=== PATIENT | male | born 1980 | race African-American/Black ===

== ENCOUNTER 2017-08-08 17:23 | Emergency (ER) | payer MEDICARE, OTHER ==
[2017-08-08 17:49] LABS: ABSOLUTE EOSINOPHILS # (AUTO) 0.1 10^3/uL (0.0-0.6); ABSOLUTE LYMPHOCYTES (AUTO) 0.5 10^3/uL (0.5-4.7); ABSOLUTE MONOCYTES (AUTO) 0.8 10^3/uL (0.1-1.4); ABSOLUTE NEUT (AUTO) 8.4 10^3/uL (1.7-8.2); EOSINOPHILS % (AUTO) 0.6 % (0-6); HEMATOCRIT 54.1 % (37.9-51.0); LYMPHOCYTES % (AUTO) 5.3 % (13-45); MEAN CORPUSCULAR HEMOGLOBIN 28.8 pg (27.0-33.4); MEAN CORPUSCULAR HGB CONC 33.2 g/dL (32.0-36.0); MEAN CORPUSCULAR VOLUME 87 fl (80-97); MONOCYTES % (AUTO) 7.9 % (3-13); PLATELET COUNT 216 10^3/uL (150-450); RED BLOOD COUNT 6.24 10^6/uL (4.35-5.55); RED CELL DISTRIBUTION WIDTH 12.8 % (11.5-14.0); SEGMENTED NEUTROPHILS % (AUTO) 86.2 % (42-78); TOTAL CELLS COUNTED % (AUTO) 100 %; WHITE BLOOD COUNT 9.8 10^3/uL (4.0-10.5)
[2017-08-08 18:09] LABS: ALANINE AMINOTRANSFERASE 91 U/L (21-72); ALBUMIN 5.3 g/dL (3.5-5.0); ALKALINE PHOSPHATASE 60 U/L (38-126); ANION GAP 17 (5-19); ASPARTATE AMINO TRANSFERASE 52 U/L (17-59); BILIRUBIN,DIRECT 0.4 mg/dL (0.0-0.4); BILIRUBIN,TOTAL 0.9 mg/dL (0.2-1.3); BLOOD UREA NITROGEN 19 mg/dL (7-20); CALCIUM 10.6 mg/dL (8.4-10.2); CARBON DIOXIDE 26 mmol/L (22-30); CHLORIDE 100 mmol/L (98-107); CREATINE KINASE 917 U/L (55-170); GLUCOSE 159 mg/dL (75-110); POTASSIUM 5.8 mmol/L (3.6-5.0); SODIUM 142.9 mmol/L (137-145); TOTAL PROTEIN 9.3 g/dL (6.3-8.2)
[2017-08-08 18:21] LABS: CREATINE KINASE MB 4.52 ng/mL (<4.55)
[2017-08-08 18:23] LABS: TROPONIN I < 0.012 ng/mL
[2017-08-08] MEDS ORDERED: NORMAL SALINE 1000 ML 1,000 ML IV ONE ×2 (18:48→20:44)
--- NOTE | 2017-08-08 19:06 | ER Document Report ---
ED GI/ - General Mode of Arrival: Ambulatory Information source: Patient TRAVEL OUTSIDE OF THE [place] IN LAST 30 DAYS: No - HPI Patient complains to provider of: Diarrhea, Vomiting Onset: This morning Timing/Duration: Sudden <LANDEN SWEENEY - Last Filed: 08/09/17 04:17> <SHAY UPTON - Last Filed: 08/09/17 04:19> - General Chief Complaint: Nausea/Vomiting/Diarrhea Stated Complaint: NAUSEA VOMITING SYNCOPE Time Seen by Provider: 08/08/17 18:45 Notes: Patient is a 36 year old male with a history of Type 2 diabetes presents to the emergency department complaining of nausea, vomiting and diarrhea with associated symptoms of abdominal cramping and a syncopal episode onset suddenly today. Patient states that he began vomiting and having diarrhea around 1030 today and proceeded to have a syncopal episode around 1500 today while having a bowel movement. who is at bedside states the patient was out for only a few seconds and they decided to call EMS. Patient states he was attempted to drink Gatorade but was unable to keep it down. Patient denies any chest pain, hematemesis or blood in stool. Patients states since recently being diagnosed with Type 2 diabetes he has started a vegan diet. Patient mentions eating 4 bananas this morning. (LANDEN SWEENEY) - Related Data Allergies/Adverse Reactions: nuts Allergy (Uncoded 08/08/17 21:22) Past Medical History - General Information source: Patient - Social History Smoking Status: Unknown if Ever Smoked Family History: Reviewed & Not Pertinent Endocrine Medical History: Reports: Hx Diabetes Mellitus Type 2 <LANDEN SWEENEY - Last Filed: 08/09/17 04:17> - Social History Smoking Status: Former Smoker Drug Abuse: None Lives with: Family, Spouse/Significant other <SHAY UPTON - Last Filed: 08/09/17 04:19> Review of Systems - Review of Systems Constitutional: No symptoms reported EENT: No symptoms reported Cardiovascular: No symptoms reported. denies: Chest pain Respiratory: No symptoms reported Gastrointestinal: See HPI, Abdominal pain, Diarrhea, Nausea, Vomiting. denies: Blood in vomit, Black stools Genitourinary: No symptoms reported Male Genitourinary: No symptoms reported Musculoskeletal: No symptoms reported Skin: No symptoms reported Hematologic/Lymphatic: No symptoms reported Neurological/Psychological: No symptoms reported -: Yes All other systems reviewed and negative <LANDEN SWEENEY - Last Filed: 08/09/17 04:17> Physical Exam <LANDEN SWEENEY - Last Filed: 08/09/17 04:17> <SHAY UPTON - Last Filed: 08/09/17 04:19> - Vital signs Vitals: Resp 18 08/08/17 17:26 - Notes Notes: GENERAL: Alert, interacts well. No acute distress. HEAD: Normocephalic, atraumatic. EYES: Pupils equal, round, and reactive to light. Extraocular movements intact. ENT: Oral mucosa moist, tongue midline. NECK: Full range of motion. Supple. Trachea midline. LUNGS: Clear to auscultation bilaterally, no wheezes, rales, or rhonchi. No respiratory distress. HEART: Regular rate and rhythm. No murmurs, gallops, or rubs. ABDOMEN: Mass palpated in LUQ, firm, tender to palpation. Bowel sounds present. EXTREMITIES: Moves all 4 extremities spontaneously. NEUROLOGICAL: Alert and oriented x3. Normal speech. PSYCH: Normal affect, normal mood. SKIN: Warm, dry, normal turgor. No rashes or lesions noted. (LANDEN SWEENEY) Course - Laboratory Result Diagrams: 08/08/17 23:00 08/08/17 22:32 <LANDEN SWEENEY - Last Filed: 08/09/17 04:17> - Laboratory Result Diagrams: 08/08/17 23:00 08/08/17 22:32 <SHAY UPTON - Last Filed: 08/09/17 04:19> - Re-evaluation Re-evalutation: 08/09/17 01:44 CBC shows likely hemoconcentration with hemoglobin 18.0, no leukocytosis, CMP concerning for potassium of 5.8, creatinine of 1.86, glucose is 159, troponin negative. Urinalysis shows specific gravity 1.025, no signs of infection but there are hyaline casts. Monospot is negative, CT scan of the abdomen and pelvis with IV and oral contrast was performed given the tender mass in the left upper quadrant. CT scan is unremarkable, no signs of infection, obstruction or tumor. Repeat abdominal exam shows masses resolved though he does still have pain in the left upper quadrant, after he has been hydrated with several liters of normal saline blood work has actually normalized, potassium is 4.7, creatinine is down to 1.22, GFR is normal. Patient has been able to tolerate the contrast without any difficulty and other oral intake. Patient will be discharged to home with Zofran and instructions to follow-up with primary care physician for recheck of blood work in approximately 1 week. ( SHAY UPTON) - Vital Signs Vital signs: Temp Pulse Resp BP Pulse Ox 97.6 F 81 16 122/74 97 08/09/17 02:00 08/09/17 02:00 08/09/17 02:00 08/09/17 02:00 08/09/17 02:00 - Laboratory Laboratory results interpreted by me: 08/08/17 08/08/17 08/08/17 16:55 16:55 20:17 RBC 6.24 H Hgb 18.0 H Hct 54.1 H Seg Neutrophils % 86.2 H Lymphocytes % 5.3 L Absolute Neutrophils 8.4 H Potassium 5.8 H Carbon Dioxide Creatinine 1.86 H Est GFR ( Amer) 49 L Est GFR (Non-Af Amer) 41 L Glucose 159 H Calcium 10.6 H ALT 91 H Creatine Kinase 917 H Total Protein 9.3 H Albumin 5.3 H Urine Protein 100 H 08/08/17 08/08/17 22:32 23:00 RBC Hgb Hct Seg Neutrophils % Lymphocytes % 10.8 L Absolute Neutrophils Potassium Carbon Dioxide 21 L Creatinine Est GFR ( Amer) Est GFR (Non-Af Amer) Glucose 122 H Calcium ALT Creatine Kinase Total Protein Albumin Urine Protein - EKG Interpretation by Me Additional EKG results interpreted by me: 08/09/17 01:45 EKG shows sinus rhythm at rate of 87, T-wave inversions are noted in lead III and aVF as well as V5 and V6, no ST segment elevations or depressions, normal axis, normal intervals per my interpretation. (SHAY UPTON) Discharge <LANDEN SWEENEY - Last Filed: 08/09/17 04:17> <SHAY UPTON - Last Filed: 08/09/17 04:19> - Discharge Clinical Impression: Nausea vomiting and diarrhea, Dehydration, Hyperkalemia Acute renal failure Qualifiers: Acute renal failure type: unspecified Qualified Code(s): N17.9 - Acute kidney failure, unspecified Condition: Stable Disposition: HOME, SELF-CARE Additional Instructions: You had evidence of kidney failure because of your dehydration. This caused your potassium to build up. All of this normalized after several liters of fluid. It is important that you have your potassium and your renal function rechecked in about 1 week to make sure it has not worsened again. Over the next week please do not eat any more than one banana per day as bananas contain a lot of potassium. Please use the Zofran as directed. Please return to the emergency department for fevers, uncontrollable vomiting, or any new or concerning symptoms. Use Imodium for diarrhea as directed [id number]. Referrals: DELORES DIAZ PA [Primary Care Provider] - Follow up in 1 week Scribe Attestation: 08/09/17 04:19 I personally performed the services described in the documentation, reviewed and edited the documentation which was dictated to the scribe in my presence, and it accurately records my words and actions. (SHAY UPTON) Scribe Documentation - Scribe Written by Rosae:: Sanam Dalal, 08/08/2017 19:41 acting as scribe for :: Blas <LANDEN SWEENEY - Last Filed: 08/09/17 04:17>
[2017-08-08] MEDS ORDERED: ONDANSETRON HCL INJ/PF 4 MG/2 ML SDV IV ONE (19:11)
[2017-08-08 20:46] LABS: APPEARANCE,URINE CLOUDY; BILIRUBIN,URINE NEGATIVE (NEGATIVE); COLOR,URINE AMBER; GLUCOSE, URINE NEGATIVE (NEGATIVE); KETONES,URINE NEGATIVE (NEGATIVE); LEUKOCYTE ESTERASE,URINE NEGATIVE (NEGATIVE); NITRITE,URINE NEGATIVE (NEGATIVE); PROTEIN,URINE 100 mg/dL (NEGATIVE); URINE SPECIFIC GRAVITY 1.025; UROBILINOGEN,URINE NEGATIVE mg/dL (<2.0)
--- NOTE | 2017-08-08 22:06 | EKG REPORT ---
SEVERITY:- ABNORMAL ECG - SINUS RHYTHM NONSPECIFIC T ABNORMALITIES, INFERIOR LEADS LVH : Confirmed by: Jeffery Tompkins 08-Aug-2017 22:06:38
[2017-08-08 23:02] LABS: ANION GAP 12 (5-19); BLOOD UREA NITROGEN 19 mg/dL (7-20); CALCIUM 8.7 mg/dL (8.4-10.2); CARBON DIOXIDE 21 mmol/L (22-30); CHLORIDE 106 mmol/L (98-107); GLUCOSE 122 mg/dL (75-110)
[2017-08-08 23:10] LABS: POTASSIUM 4.7 mmol/L (3.6-5.0)
--- NOTE | 2017-08-08 23:15 | RADIOLOGY REPORT (SQ) ---
EXAM DESCRIPTION: CT ABD/PELVIS WITH IV ORAL COMPLETED DATE/TIME: 08/08/2017 10:45 pm REASON FOR STUDY: LUQ pain, mass, vomiting and diarrhea COMPARISON: None. TECHNIQUE: CT scan of the abdomen and pelvis performed using helical scanning technique with dynamic intravenous contrast injection. No oral contrast. Images reviewed with lung, soft tissue, and bone windows. Reconstructed coronal and sagittal MPR images reviewed. Delayed images for evaluation of the urinary system also acquired. All images stored on PACS. All CT scanners at this facility use dose modulation, iterative reconstruction, and/or weight based d osing when appropriate to reduce radiation dose to as low as reasonably achievable (ALARA). [facility]: Dose Right [facility]: CareDose [facility]: Dose Right [facility]: Teradose 4D [facility]: [employer] CONTRAST TYPE AND DOSE: contrast/concentration: Isovue 300.00 mg/ml; Total Contrast Delivered: 98.0 ml; Total Saline Delivered: 30.0 ml RENAL FUNCTION: BUN 19 creatinine 1.86 RADIATION DOSE: CT Rad equipment meets quality standard of care and radiation dose reduction techniq ues were employed. CTDIvol: 12.2 - 17.0 mGy. DLP: 1634 mGy-cm.. LIMITATIONS: None. FINDINGS: LOWER CHEST: No significant findings. No nodules or infiltrates. LIVER: Fatty infiltration. Normal size. No enhancing masses. No dilated ducts. SPLEEN: Normal size. No focal lesions. PANCREAS: No masses. No significant calcifications. No adjacent inflammation or peripancreatic fluid collections. Pancreatic duct not dilated. GALLBLADDER: No identified stones by CT criteria. No inflammatory changes to suggest cholecystitis. ADRENAL GLANDS: No significant masses or asymmetry. RIGHT KIDNEY AND URETER: No solid masses. No significant calcifications. No hydronephrosis or hyd roureter. LEFT KIDNEY AND URETER: No solid masses. No significant calcifications. No hydronephrosis or hydr oureter. AORTA AND VESSELS: No aneurysm. No dissection. Renal arteries, SMA, celiac without stenosis. RETROPERITONEUM: No retroperitoneal adenopathy, hemorrhage or masses. BOWEL AND PERITONEAL CAVITY: No masses or inflammatory changes. No free fluid or peritoneal masses. APPENDIX: Normal. PELVIS: No mass. No free fluid. Normal bladder. ABDOMINAL WALL: No masses. No hernias. BONES: No significant or acute findings. OTHER: No other significant finding. IMPRESSION: No acute inflammatory changes. Fatty infiltration of the liver. TECHNICAL DOCUMENTATION: JOB ID: [id number] [id number] Quality ID # [id number]: Final reports with documentation of one or more dose reduction techniques (e.g., Au tomated exposure control, adjustment of the mA and/or kV according to patient size, use of iterative reconstruction technique) 2010 [employer]- All Rights Reserved Reading location - IP/workstation name: [email or web address]
[2017-08-08 23:21] LABS: ABSOLUTE EOSINOPHILS # (AUTO) 0.1 10^3/uL (0.0-0.6); ABSOLUTE LYMPHOCYTES (AUTO) 0.8 10^3/uL (0.5-4.7); BASOPHILS % (AUTO) 0.1 % (0-2); MEAN CORPUSCULAR VOLUME 86 fl (80-97); TOTAL CELLS COUNTED % (AUTO) 100 %; WHITE BLOOD COUNT 7.2 10^3/uL (4.0-10.5)
[2017-08-08 23:28] LABS: ABSOLUTE MONOCYTES (AUTO) 0.8 10^3/uL (0.1-1.4); ABSOLUTE NEUT (AUTO) 5.6 10^3/uL (1.7-8.2); HEMATOCRIT 43.7 % (37.9-51.0); LYMPHOCYTES % (AUTO) 10.8 % (13-45); MEAN CORPUSCULAR HEMOGLOBIN 28.1 pg (27.0-33.4); MEAN CORPUSCULAR HGB CONC 32.5 g/dL (32.0-36.0); PLATELET COUNT 191 10^3/uL (150-450); RED BLOOD COUNT 5.07 10^6/uL (4.35-5.55); RED CELL DISTRIBUTION WIDTH 12.8 % (11.5-14.0); SEGMENTED NEUTROPHILS % (AUTO) 77.1 % (42-78)
[2017-08-08 23:29] LABS: HEMOGLOBIN 14.2 g/dL (13.5-17.0)
[2017-08-09] MEDS ORDERED: ONDANSETRON ODT 4 MG TAB (6 TAB/ER DISP) PO PRN (01:50)
[2017-08-09 02:02] VITALS: BP 122/74
== END 2017-08-09 02:02 | disposition home or self-care (01) ==
LOC: ER 17:23
DX: R11.2 Nausea with vomiting, unspecified (principal); R19.7 Diarrhea, unspecified; N17.9 Acute kidney failure, unspecified; E86.0 Dehydration; E87.5 Hyperkalemia; R55 Syncope and collapse; R10.12 Left upper quadrant pain; E11.9 Type 2 diabetes mellitus without complications; Z91.018 Allergy to other foods
CPT/HCPCS: 93005; 99284; 96361; 96374; 36415; 82553; 82550; 85025; 86308; 80048; 80053; 81001; 84484; 74177; 93010; J2405; J7030; A9270

== ENCOUNTER → 2017-10-25 | Outpatient (CLI) | payer MEDICARE ==
--- NOTE | 2017-10-25 10:22 | RADIOLOGY REPORT (SQ) ---
EXAM DESCRIPTION: MRI HEAD COMBO COMPLETED DATE/TIME: 10/25/2017 9:11 am REASON FOR STUDY: HYPERPROLACTINEMIA E22.1 HYPERPROLACTINEMIA COMPARISON: 05/08/2015. TECHNIQUE: Multiplanar imaging includes non-contrasted T1, T2, FLAIR, diffusion with ADC map and pos t gadolinium contrast T1 sequences. Thin sections through the pituitary fossa pre and post contrast. Images stored on PACS. CONTRAST TYPE AND DOSE: 20 mL Multihance. RENAL FUNCTION: GFR > 60. LIMITATIONS: None. FINDINGS: ANATOMY: No anomalies. Normal vascular flow voids. CSF SPACES: Normal in size and contour. No hemorrhage. PITUITARY FOSSA: Partially empty sella. No masses. No asymmetry. Infundibulum midline. CEREBRUM: Sulci and gyri normal in size and contour. Normal white matter signal on FLAIR imaging. No evidence of hemorrhage, mass, or extraaxial fluid collection. No abnormal enhancement post contrast. POSTERIOR FOSSA: No signal alteration. No hemorrhage. No edema, masses, or mass effect. Internal aud itory canals, cerebello-pontine angles, mastoids normal. No enhancing lesions. ORBITS: No masses. Globes normal. PARANASAL SINUSES: Mucous membrane thickening and fluid in the right maxillary sinus. OTHER: No other significant finding. IMPRESSION: NORMAL MRI OF THE BRAIN AND PITUITARY FOSSA WITHOUT AND WITH INTRAVENOUS GADOLINIUM CONT RAST. THERE IS A PARTIALLY EMPTY SELLA WITH NO FOCAL PITUITARY LESIONS. RIGHT MAXILLARY SINUS DISEASE. TECHNICAL DOCUMENTATION: JOB ID: [id number] [employer]- All Rights Reserved Reading location - IP/workstation name: [email or web address]
== END ==
LOC: RAD 07:58
PROVIDERS: ATTEND Internal Medicine Endocrinology, Diabetes & Metabolism
DX: E22.1 Hyperprolactinemia (principal); J32.0 Chronic maxillary sinusitis
CPT/HCPCS: 82565; 70553; A9577